=== PATIENT | female | born 1985 | race Caucasian/White ===

== ENCOUNTER → 2023-12-22 08:40 | Outpatient (CLI) | payer BC, SELFPAY ==
--- NOTE | 2023-12-22 08:44 | DI.MG.S_ITS ---
BILATERAL DIGITAL DIAGNOSTIC MAMMOGRAM 3D/2D: 12/22/2023 CLINICAL: Left breast mass x's 3 weeks. Baseline exam. No prior exams were available for comparison. Both breasts are extremely dense, which lowers the sensitivity of mammography (category d />75% glandular tissue). There is a possible 5 mm oval low density asymmetry with an indistinct margin in the left breast at 9 o'clock middle depth. This correlates in position, but smaller in size than palpated. There also is an incidental possible 1.9 cm asymmetry with an indistinct margin in the left breast at 6 o'clock posterior depth. This is not seen in additional views. No other significant masses, calcifications, or other findings are seen in either breast. Right mammogram is normal. IMPRESSION: INCOMPLETE: NEEDS ADDITIONAL IMAGING EVALUATION Right mammogram is normal. On the left, the possible 5 mm oval low density asymmetry in the left breast at 9 o'clock middle depth may correspond to the palpable abnormality but remains indeterminate. An ultrasound is recommended. The incidental 1.9 cm asymmetry in the left breast at 6 o'clock posterior depth most likely is fibroglandular tissue and is indeterminate. An ultrasound is recommended. This was performed immediately following this exam. Based on Tyrer-Cuzick model (a risk assessment model), the patient's lifetime risk is 30.4% and her 10 year risk is 6.8%. If a patient has an elevated risk, a more comprehensive evaluation should be considered and/or a referral to a genetic counselor. The [employer], [employer], and NCCN Guidelines advise the consideration of Breast MRI as an adjunct to screening mammography in patients whose Lifetime risk to develop breast cancer is 20% or higher. This exam was interpreted at Station ID: [id number]. NOTE: For mammograms, a report in lay terms will be sent to the patient. Approximately 15% of breast malignancies will not be visualized mammographically. In the management of a palpable breast mass, a negative mammogram must not discourage biopsy of a clinically suspicious lesion. Electronically Signed By: Leticia bloom/:12/22/2023 09:25:48 ACR BI-RADS Category 0: Incomplete 3340F
--- NOTE | 2023-12-22 08:44 | DI.US.S_ITS ---
LIMITED ULTRASOUND OF LEFT BREAST: 12/22/2023 CLINICAL: Palpable left breast lump 7:00. Abnormal mammo 5:00. Comparison is made to exam dated: 12/22/2023 mammogram - [facility]. Color flow ultrasound of the left breast 5 o'clock and 7 o'clock regions was performed. Davies scale images of the real-time examination were reviewed. No significant abnormalities were seen sonographically in the left breast. Specifically, no finding to correspond to the patient's palpable abnormality or to the incidental possible asymmetry which appears to be glandular tissue. IMPRESSION: NEGATIVE There is no sonographic correlate to the patient's palpable abnormality, incidental asymmetry in the left breast, and no evidence of malignancy. A 2 year screening mammogram is recommended. Findings and recommendations were conveyed to the patient at time of exam. This exam was interpreted at Station ID: [id number]. Electronically Signed By: Leticia bloom/:12/22/2023 09:56:08 letter sent: Normal Exam Ultrasound BI-RADS: 1 Negative
== END ==
LOC: MAMMO 08:43
DX: R92.2 Inconclusive mammogram (principal); N63.25 Unspecified lump in the left breast, overlapping quadrants; R92.343 Mammographic extreme density, bilateral breasts
CPT/HCPCS: 76642; 77066; G0279